=== PATIENT | male | born 1950 | race Caucasian/White ===

== ENCOUNTER 2019-03-28 06:14 | Day surgery (SDC) | payer MEDICARE, BC ==
[2019-03-27 12:27] VITALS: BMI 29.0
[2019-03-28] MEDS ORDERED: Cyclopentolate 1% Opth Drop 2 ML BOT ONE (06:58)
[2019-03-28] MEDS ORDERED: Phenylephrine 2.5% Ophth Soln 5 ML BOT ONE (06:59)
[2019-03-28] MEDS ORDERED: Midazolam HCl 2 mg/2 ml Vial ONE (08:13)
[2019-03-28] MEDS ORDERED: Fentanyl 100 MCG/2 ML VIAL ONE (08:13)
--- NOTE | 2019-03-28 09:33 | OP ---
DATE OF PROCEDURE: 03/28/2019 PREOPERATIVE DIAGNOSES: Vitreous hemorrhage and epiretinal membrane, right eye. POSTOPERATIVE DIAGNOSES: Vitreous hemorrhage and epiretinal membrane, right eye. PROCEDURES PERFORMED: Pars plana vitrectomy and membrane peel, right eye. ANESTHESIA: Local with monitored anesthesia care. COMPLICATIONS: None. PROCEDURE IN DETAIL: The patient was identified in the preoperative holding area. Appropriate informed consent for the planned surgical procedure on the right eye had been obtained. The patient was transported to the operative suite. Appropriate cardiopulmonary monitoring was established. Local anesthesia was obtained using retrobulbar modified [place] Lint lid block using 50:50 mixture of 4% lidocaine and 0.75% bupivacaine. The patient was prepped and draped in usual sterile manner for ophthalmic surgery of right eye. Lid speculum was placed in the right eye. A 25-gauge trocar was placed through the conjunctiva and sclera superotemporally, inferotemporally, and supranasally. Infusion line was placed inferotemporally. Light pipe and vitreous cutter were inserted into the eye. Core vitrectomy was performed. Posterior hyaloid face was elevated from the macula and peeled across the retina using vacuum suction. Panretinal photocoagulation was placed in all non-macular areas of the retina. No holes, breaks, or tears were identified. Trocars were removed. The eye was noted to retain pressure well. Retrobulbar Kenalog and subconjunctival Ancef were placed. Antibiotic ointment was placed. The eye was patched and shield. The patient was taken to the postoperative care unit in good condition, having suffered no immediate perioperative complications. The patient was instructed to keep patch and shield on, advised avoid lifting or bending. Followup appointment with Dr. Mendoza. Job ID: [id number]
[2019-03-28] MEDS ORDERED: EPINEPHrine 0.3 MG, Dextrose 50% 3 ML in Ophthalmic Irrigation Solution 500 ML FS SCH (11:24)
[2019-03-28] MEDS ORDERED: Lidocaine 1% PF 5 ML VIAL ONE (16:29)
[2019-03-28] MEDS ORDERED: Maxitrol 0.1% Opth Oint 3.5 GM TUBE ONE (16:29)
[2019-03-28] MEDS ORDERED: Triamcinolone 40 MG/ML VIAL ONE (16:29)
[2019-03-28] MEDS ORDERED: Lidocaine 4% PF 5 ML AMP ONE (16:29)
[2019-03-28] MEDS ORDERED: CEFAZOLIN 1 GM VIAL ONE (16:29)
[2019-03-28] MEDS ORDERED: Bupivacaine 0.75% 10 ML AMP ONE (16:29)
[2019-03-28] MEDS ORDERED: PROPOFOL 200 MG/20 ML VIAL ONE (16:30)
== END 2019-03-28 09:45 | disposition home or self-care (01) ==
LOC: SDC 06:14
PROVIDERS: ATTEND Ophthalmology Retina Specialist
PROC: 08T43ZZ Resection of Right Vitreous, Percutaneous Approach (ICD-10-PCS; principal; 2019-03-28)
PROC: 08NE3ZZ Release Right Retina, Percutaneous Approach (ICD-10-PCS; 2019-03-28)
DX: H43.11 Vitreous hemorrhage, right eye (principal); H35.371 Puckering of macula, right eye; E11.9 Type 2 diabetes mellitus without complications; E78.00 Pure hypercholesterolemia, unspecified; I10 Essential (primary) hypertension; Z79.4 Long term (current) use of insulin; Z79.899 Other long term (current) drug therapy
CPT/HCPCS: 36416; J0171; J2250; J3010